=== PATIENT | female | born 1965 | race Caucasian/White ===

== ENCOUNTER 2017-03-14 18:56 | Emergency (ER) | payer OTHER ==
[2017-03-14 19:07] VITALS: RESP 16; TEMP 99
--- NOTE | 2017-03-14 19:08 | EDPHY ---
H & P Stated Complaint: R shoulder pain for several days. Meds not working. HPI/ROS: CHIEF COMPLAINT: Right shoulder and arm pain HISTORY OF PRESENT ILLNESS: This is a 51-year-old female in general good health who presents with 3 days of right upper back, shoulder, and arm pain. The pain began after she stepped in an awkward position. It has persisted and worsened over the last 3 days. She has been taking Aleve and Tylenol without relief. She denies numbness, weakness, bowel or bladder changes. No recent injury. No significant neck pain. She has had an L5-S1 diskectomy in the remote past. She is right-hand dominant. REVIEW OF SYSTEMS: A ten point review of systems was performed and is negative with the exception of the items mentioned in the HPI. Past surgical history: 1. L5-S1 microdiskectomy 2. Breast reduction 3. Hysterectomy Social history: She is a registered nurse. She is here with her . She does not use tobacco or alcohol products. General Appearance: Alert. Vital signs reviewed. Blood pressure 174/95 at triage. Eyes: Pupils equal and round, no conjunctival injection, no discharge. Anicteric. Neck: Nontender to palpation over the cervical spine in the midline. No neck pain with active range of motion of the neck. Respiratory: Lungs are clear to auscultation; no wheezes, rales, or rhonchi. Cardiovascular: Regular rate and rhythm; no murmur, rub, or gallop. Skin: Warm and dry, no rashes on exposed skin, normal color. Back: Nontender to palpation over the thoracolumbar spine. There is tenderness along the medial scapula on the right. Neurological: Alert and oriented. Moving all four extremities easily and equally. Strength is 5 over 5 bilateral upper extremities with testing of deltoid, triceps, biceps, wrist flexion, wrist extension, lye treater, and interossei. Sensation is intact to light touch over all 4 extremities. Deep tendon reflexes are 2+ in the biceps and triceps bilaterally. Gait is normal. Psychiatric: Normal affect. - Personal History LMP (Females 10-55): Hysterectomy Current Tetanus/Diphtheria Vaccine: Unsure Current Tetanus Diphtheria and Acellular Pertussis (TDAP): Unsure - Medical/Surgical History Hx Asthma: No Hx Chronic Respiratory Disease: No Hx Diabetes: No Hx Cardiac Disease: No Hx Renal Disease: No Hx Cirrhosis: No Hx Alcoholism: No Hx HIV/AIDS: No Hx Splenectomy or Spleen Trauma: No Other PMH: Micro-discetomy L5-S1, Hysterectomy, breast reduction. - Social History Smoking Status: Never smoked Constitutional: Initial Vital Signs Temperature (C) 37.2 C 03/14/17 19:03 Heart Rate 65 03/14/17 19:03 Respiratory Rate 16 03/14/17 19:03 Blood Pressure 174/95 H 03/14/17 19:03 O2 Sat (%) 95 03/14/17 19:03 O2 Delivery Mode Room Air Allergies/Adverse Reactions: No Known Allergies Allergy (Verified 03/14/17 19:07) Home Medications: Medication Instructions Recorded Escitalopram Oxalate [Lexapro 10 10 mg PO 10/24/12 MG (RX)] Estradiol/Norethindrone Acet 1 each TD 10/24/12 [Combipatch 0.05-0.14 mg Ptch] Progesterone,Micronized 100 mg PO HS 10/24/12 [Prometrium 100mg (RX)] Gabapentin [Neurontin 300 MG (*)] 300 mg PO HS #30 cap 03/14/17 Hydrocodone/APAP 5/325 [[place] 1 - 2 tab PO Q4 PRN #14 tab 03/14/17 5/325 (RX)] Lidocaine 5% [Lidoderm 5% Patch 1 ea TD DAILY #5 patch 03/14/17 (*)] methylPREDNISolone [Medrol Dose 4 mg PO DAILY #1 ea 03/14/17 Kevin] Medical Decision Making ED Course/Re-evaluation: I suspect right radiculopathy is the source of her pain. She does not have numbness or weakness. I do not recommend MRI at this time. She has not had relief with Aleve and will try a Medrol Dosepak. In addition I am prescribing gabapentin, lidocaine patches, and Vicodin. We reviewed the instructions for using these medications. She will follow up with her primary care physician. At this time I do not think that she needs specialist care. We reviewed the danger signs that should prompt her to be re-evaluated immediately. She is aware that she had high blood pressure in the emergency department. Blood pressure at discharge was 140/81. She will have her blood pressure rechecked. Differential Diagnosis: I considered a differential diagnosis that includes but is not limited to cervical radiculopathy, cervical sprain/strain, muscle spasm, infectious etiology, inflammatory etiology, and neoplasm. - Data Points Medications Given: Discontinued Medications Hydrocodone Bitart/Acetaminophen ([place] 5/325) 1 tab PO EDNOW ONE Stop: 03/14/17 19:34 Last Admin: 03/14/17 19:39 Dose: 1 tab Departure - Departure Disposition: Home, Routine, Self-Care Clinical Impression: Cervical radiculopathy Condition: Good Instructions: Cervical Radiculopathy (ED) Additional Instructions: Use the lidocaine patches on her upper back wear your experiencing pain. You can wear a patch for 12 hours and then remove it for 12 hours. Take the Medrol Dosepak as prescribed. Use the Vicodin as needed for severe pain. Referrals: Penelope Dooley, [employer] [Primary Care Provider] - As per Instructions Prescriptions: Gabapentin [Neurontin 300 MG (*)] 300 mg PO HS #30 cap Hydrocodone/APAP 5/325 [[place] 5/325 (RX)] 1 - 2 tab PO Q4 PRN #14 tab PRN Reason: pain Lidocaine 5% [Lidoderm 5% Patch (*)] 1 ea TD DAILY #5 patch methylPREDNISolone [Medrol Dose Kevin] 4 mg PO DAILY #1 ea
[2017-03-14] MEDS ORDERED: HYDROCODONE/APAP 5/325 TAB PO ONE (19:33)
[2017-03-14 19:49] VITALS: BP 140/81; PULSE 59; O2SAT 97
== END 2017-03-14 19:48 | disposition home or self-care (01) ==
LOC: CED 18:56
DX: M54.12 Radiculopathy, cervical region (principal)